=== PATIENT | male | born 1980 | race African-American/Black ===

== ENCOUNTER 2016-11-02 16:10 | Emergency (ER) ==
--- NOTE | 2016-11-02 17:12 | UC ---
Ear Complaint HPI - HPI Summary HPI Summary: compalint of left ear pain that started 4 days ago sharp pain that shoots into his neck denies nasal congestion, cough denies headaches denies fever took some execriin wtioht some relief - History of Current Complaint Chief Complaint: UCEar Stated Complaint: EAR ACHE Time Seen by Provider: 11/02/16 17:05 Hx Obtained From: Patient - Allergies/Home Medications Allergies/Adverse Reactions: Allergies Allergy/AdvReac Type Severity Reaction Status Date / Time No Known Allergies Allergy Verified 11/02/16 16:32 PMH/Surg Hx/FS Hx/Imm Hx Previously Healthy: Yes Endocrine History Of: Denies: Diabetes, Thyroid Disease Cardiovascular History Of: Denies: Cardiac Disorders, Hypertension Respiratory History Of: Denies: COPD, Asthma GI/ History Of: Denies: Ulcer - Surgical History Surgical History: None Surgery Procedure, Year, and Place: denies - Family History Known Family History: Negative: Cardiac Disease, Hypertension, Diabetes - Social History Occupation: Employed Full-time Lives: With Family Alcohol Use: None Substance Use Type: None Smoking Status (MU): Never Smoked Tobacco - Immunization History Most Recent Influenza Vaccination: denies Review of Systems Constitutional: Negative Skin: Rash Eyes: Negative ENT: Ear Ache Respiratory: Negative Cardiovascular: Negative Gastrointestinal: Negative Genitourinary: Negative Motor: Negative Musculoskeletal: Negative Neurological: Negative Psychological: Negative All Other Systems Reviewed And Are Negative: Yes Physical Exam Triage Information Reviewed: Yes Appearance: Well-Appearing, No Pain Distress, Well-Nourished Vital Signs: Initial Vital Signs Temp 97.7 F 11/02/16 16:27 Pulse 62 11/02/16 16:27 Resp 16 11/02/16 16:27 BP 118/82 11/02/16 16:27 Pulse Ox 99 11/02/16 16:27 Vital Signs Reviewed: Yes Eyes: Positive: Conjunctiva Clear ENT: Positive: Pharynx normal, TM bulging, Other: - left ear canal with erythema and edema. Negative: Nasal congestion, TM dull, TM red Neck: Positive: No Lymphadenopathy Respiratory: Positive: Lungs clear, Normal breath sounds, No respiratory distress, No accessory muscle use Cardiovascular: Positive: RRR, No Murmur, Pulses Normal Abdomen Description: Positive: Nontender, Soft Bowel Sounds: Positive: Present Musculoskeletal: Positive: No Edema Neurological: Positive: Alert Psychological Exam: Normal Skin Exam: Normal Ear Complaint Course/Dx - Differential Dx/Diagnosis Differential Diagnosis/HQI/PQRI: Cerumen Impaction, Otitis Externa, Otitis Media , Other - eustachion tube dysfunction Provider Diagnoses: otitis externa left,eustachion tube dysfunction bilateral Discharge - Discharge Plan Condition: Stable Disposition: HOME Prescriptions: Ciproflox/Dexameth OTIC.SUSP* [Ciprodex OTIC.SUSP*] 4 drop LEFT EAR BID #1 btl Fluticasone NASAL SPRAY 50MCG* [Flonase NASAL SPRAY 50MCG*] 2 spray BOTH NARES DAILY #1 btl Patient Education Materials: Otitis Externa (ED) Referrals: [facility] [Outside] Additional Instructions: Please start antibiotic eardrops and flonase as directed Increase fluids and rest Take acetaminophen or ibuprofen for fever or pain Please review your discharge instructions. If your symptoms do not improve please call your primary care provider or return to urgent care
== END 2016-11-02 17:41 | disposition home or self-care (01) ==
LOC: UCEAST 16:10
DX: H60.92 Unspecified otitis externa, left ear (principal); H69.93 Unspecified Eustachian tube disorder, bilateral
CPT/HCPCS: 99202; G0463

== ENCOUNTER 2018-02-26 23:40 | Emergency (ER) | payer SELFPAY ==
--- NOTE | 2018-02-27 00:04 | ED ---
HPI Chest Pain - HPI Summary HPI Summary: This patient is a 37 year old M presenting to [facility] with a chief complaint of constant left chest pain since 4 days ago. Patient describes the pain as waxing and waning and as a chest pressure. The patient rates the pain 7/10 in severity. Symptoms aggravated by sitting still. Symptoms alleviated by movement. Patient reports diaphoresis, tingling in his left arm, and left upper back pain. Patient denies nausea, abdominal pain, or shortness of breath. Patient denies any cardiac hx or taking any medications. - History of Current Complaint Chief Complaint: EDChestPainROMI Time Seen by Provider: 02/26/18 23:55 Hx Obtained From: Patient, Family/Outsole Beveler - patient's Onset/Duration: Started Days Ago - 4 days, Atraumatic, Still Present Timing: Intermittent Initial Severity: Moderate Current Severity: Moderate Pain Intensity: 7 Pain Scale Used: 0-10 Numeric Chest Pain Location: Left Anterior Chest Pain Radiates To:: Arm - left arm Character: Pressure/Squeezing Aggravating Factor(s): Position - sitting, Rest Alleviating Factor(s): Other: - movement Associated Signs and Symptoms: Positive: Chest Pain, Tingling - in left arm, Diaphoresis, Back Pain - left upper back pain. Negative: Shortness of Breath, Nausea - Allergy/Home Medications Allergies/Adverse Reactions: Allergies Allergy/AdvReac Type Severity Reaction Status Date / Time No Known Allergies Allergy Verified 02/26/18 23:45 Home Medications: Home Medications NK [No Home Medications Reported] 02/26/18 [History Confirmed 02/26/18] PMH/Surg Hx/FS Hx/Imm Hx Endocrine/Hematology History: Denies: Hx Diabetes, Hx Thyroid Disease Cardiovascular History: Denies: Hx Hypertension Respiratory History: Denies: Hx Asthma, Hx Chronic Obstructive Pulmonary Disease (COPD) GI History: Denies: Hx Ulcer - Surgical History Surgery Procedure, Year, and Place: denies Infectious Disease History: No Infectious Disease History: Denies: Hx Clostridium Difficile, Hx Hepatitis, Hx Human Immunodeficiency Virus (HIV), Hx of Known/Suspected MRSA, Hx Shingles, Hx Tuberculosis, Hx Known/ Suspected VRE, Hx Known/Suspected VRSA, History Other Infectious Disease, Traveled Outside the [place] in Last 30 Days - Family History Known Family History: Negative: Cardiac Disease, Hypertension, Diabetes - Social History Alcohol Use: None Substance Use Type: Reports: None Smoking Status (MU): Never Smoked Tobacco Review of Systems Positive: Skin Diaphoresis Positive: Chest Pain - radiating to left upper back Negative: Shortness Of Breath Negative: Abdominal Pain, Nausea Neurological: Other - tingling in left arm All Other Systems Reviewed And Are Negative: Yes Physical Exam - Summary Physical Exam Summary: Appearance: Well-appearing, Well-nourished, lying in bed comfortably Skin: Warm, dry, no obvious rash Eyes: sclera anicteric, no conjunctival pallor ENT: mucous membranes moist, pharynx appears normal Neck: Supple, nontender Respiratory: Clear to auscultation, no signs of respiratory distress Cardiovascular: Normal S1, S2. No murmurs. Normal distal pulses in tibial and radial bilaterally. Abdomen: Soft, nontender, normal active bowel sounds present Musculoskeletal: Normal, Strength/ROM Intact Neurological: A&Ox3, awake and alert, mentation is normal, speech is fluent and appropriate Psychiatric: affect is normal, does not appear anxious or depressed Triage Information Reviewed: Yes Vital Signs On Initial Exam: Initial Vitals Temp Pulse Resp BP Pulse Ox 97.6 F 72 16 125/76 98 02/26/18 23:41 02/26/18 23:41 02/26/18 23:41 02/26/18 23:41 02/26/18 23:41 Vital Signs Reviewed: Yes Diagnostics - Vital Signs Vital Signs Temp Pulse Resp BP Pulse Ox 02/26/18 23:41 97.6 F 72 16 125/76 98 - Laboratory Result Diagrams: 02/27/18 00:26 02/27/18 00:26 Lab Statement: Any lab studies that have been ordered have been reviewed, and results considered in the medical decision making process. - Radiology CXR Xray Interpretation: No Acute Changes - no acute findings Radiology Interpretation Completed By: ED Physician - Dr. Pham, pending official report - EKG 23:46 Cardiac Rate: NL - at 74 bpm EKG Rhythm: Sinus Rhythm ST Segment: Normal Ectopy: None EKG Interpretation: NSR at 74 bpm with nml intervals and no ischemic changes Chest Pain Course/Dx - Diagnoses Provider Diagnoses: Atypical chest pain Discharge - Sign-Out/Discharge Documenting (check all that apply): Patient Departure - Discharge Plan Condition: Good Disposition: HOME Patient Education Materials: Chest Pain (ED) Referrals: [facility] [Outside] - Billing Disposition and Condition Condition: GOOD Disposition: Home - Attestation Statements Document Initiated by Dory: Yes Documenting Scribe: Obdulia Cabello Provider For Whom Dory is Documenting (Include Credential): Riki Pham MD Scribe Attestation: Obdulia Porras, scribed for Riki Pham MD on 02/27/18 at 0544. Scribe Documentation Reviewed: Yes Provider Attestation: The documentation as recorded by the [email or web address] [email or web address] accurately reflects the service I personally performed and the decisions made by , Riki Pham MD
[2018-02-27 00:33] LABS: ABS Basophils 0 10^3/ul (0-0.2); ABS Eosinophils 0.1 10^3/ul (0-0.6); ABS Lymphocytes 1.2 10^3/ul (1.0-4.8); ABS Monocytes 0.3 10^3/ul (0-0.8); ABS Neutrophils 3.9 10^3/ul (1.5-7.7); ABS Nucleated RBC 0.1 10^3/ul; Eosinophil % 1.4 % (0-6); Hematocrit 44 % (42-52); Hemoglobin 15.7 g/dl (14.0-18.0); Mean Corpuscular HGB Conc 35 g/dl (31-36); Mean Corpuscular Hemoglobin 33 pg (27-31); Mean Corpuscular Volume 95 fL (80-94); Mean Platelet Volume 6.8 um3 (7.4-10.4); Nucleated Red Blood Cells % 0.9; Platelet Count 241 10^3/ul (150-450); Red Blood Count 4.69 10^6/ul (4.00-5.40); Red Cell Distribution Width 12 % (10.5-15); White Blood Count 5.5 10^3/ul (3.5-10.8)
[2018-02-27 00:50] LABS: EGFR Non-African American 59.9 (>60)
[2018-02-27 01:38] VITALS: BP 126/68
--- NOTE | 2018-02-27 08:39 | RAD ---
INDICATION: Left-sided chest pain COMPARISON: None TECHNIQUE: PA and lateral views of the chest were obtained. FINDINGS: The heart and mediastinum are normal in size and contour. The lungs are grossly clear. There is no evidence of large pleural effusion. Visualized bones are normal for the patient's age. There is no radiographic evidence of free air beneath the diaphragm IMPRESSION: No radiographic evidence of acute cardiopulmonary disease. R0
== END 2018-02-27 01:37 | disposition home or self-care (01) ==
LOC: ED 23:40
CPT/HCPCS: 36415; 71046; 80053; 84484; 85025; 93005